=== PATIENT | female | born 1965 | race Caucasian/White ===

== ENCOUNTER 2023-04-11 13:29 | Outpatient (CLI) | payer BC, SELFPAY ==
--- NOTE | 2023-04-11 13:40 | CRLHL7_ITS ---
For Patients: As a result of the Century Cures Act, medical imaging exams and procedure reports are released immediately into your electronic medical record. You may view this report before your referring provider. If you have questions, please contact your health care provider. BILATERAL SCREENING MAMMOGRAM WITH COMPUTER-AIDED DETECTION TECHNIQUE: CC and MLO views were obtained. These mammographic images have been obtained using full-field digital technique. These mammographic images were interpreted with the benefit of computer-aided detection. COMPARISON FILM: 01/30/21. FINDINGS: There are scattered areas of fibroglandular density IMPRESSION: There is no radiographic evidence for malignancy. ASSESSMENT: BI-RADS Category 1: Negative RECOMMENDATION: Routine screening mammogram in 1 year. A lay language report of this examination will be provided to the patient. Rito Jesus M.D. Diagnostic Radiologist [email or web address] NATHAN/Dictated by: Rito Jesus MD @ 04/12/2023 10:17:00 AM (Electronically Signed)
== END 2023-04-11 13:30 | disposition home or self-care (01) ==
LOC: MAMMO 13:29
PROVIDERS: PCP Family Medicine; Visit Provider Family Medicine
DX: Z12.31 Encounter for screening mammogram for malignant neoplasm of breast (principal)
CPT/HCPCS: 77067

== ENCOUNTER 2023-05-13 16:00 | Outpatient (RCR) | payer BC, SELFPAY | END 2023-08-08 09:06 | disposition home or self-care (01) | PROVIDERS: PCP Family Medicine; Visit Provider Psychiatry & Neurology Neurology | DX: R20.2 Paresthesia of skin (principal); M50.30 Other cervical disc degeneration, unspecified cervical region; Z51.89 Encounter for other specified aftercare | CPT/HCPCS: 97110; 97140; 97162 ==